=== PATIENT | male | born 1950 | race Caucasian/White ===

== ENCOUNTER → 2018-01-26 08:22 | Outpatient (CLI) | payer MEDICARE, OTHER, SELFPAY ==
[2018-01-26 11:18] LABS: PSA,Total- Diagnostic 2.41 ng/mL (0.0-4.0)
== END ==
PROVIDERS: Family Provider Family Medicine; PCP Family Medicine; Visit Provider Urology
DX: R97.20 Elevated prostate specific antigen [PSA] (principal)
CPT/HCPCS: 36415; 84153

== ENCOUNTER → 2018-09-17 12:50 | Outpatient (CLI) | payer MEDICARE, OTHER, SELFPAY ==
[2018-09-17 14:36] LABS: PSA,Total - Annual Screen 2.91 ng/mL (0.00-4.00)
== END ==
PROVIDERS: Family Provider Family Medicine; PCP Family Medicine; Referring Provider Urology; Visit Provider Urology
DX: Z12.5 Encounter for screening for malignant neoplasm of prostate (principal)
CPT/HCPCS: 36415; 84153; G0103

== ENCOUNTER → 2020-06-12 08:53 | Outpatient (CLI) | payer MEDICARE, OTHER, SELFPAY ==
[2020-06-12 10:13] LABS: PSA,Total- Diagnostic 2.93 ng/mL (0.0-4.0)
== END ==
PROVIDERS: PCP Family Medicine; Referring Provider Urology; Visit Provider Urology
DX: C61 Malignant neoplasm of prostate (principal)
CPT/HCPCS: 36415; 84153

== ENCOUNTER → 2020-08-17 08:13 | Outpatient (CLI) | payer MEDICARE, OTHER, SELFPAY ==
[2020-08-17 10:18] LABS: Absolute Lymphocyte Count 2.85 X10^3/uL (0.83-4.51); Absolute Neutrophil Count 5.1 X10^3/uL (2.0-7.7); Basophil# 0.03 X10^3/uL; Basophil% 0.3 % (0-1); Eosinophil# 0.23 X10^3/uL; Eosinophils% 2.5 % (0-5); Hematocrit 45.4 % (40-54); Hemoglobin 14.7 g/dL (13.0-16.5); Lymphocyte # 2.85 X10^3/ul (4.0); Lymphocyte % 31.1 % (19-41); Mean Corp Hgb Conc 32.4 g/dL (32-36); Mean Corpuscular Hgb 28.8 pg (27.0-32.0); Mean Platelet Vol. 9.9 fl (6.2-12.0); Monocyte# 0.87 X10^3/uL; Monocyte% 9.5 % (0-10); NRBC Flagged by Analyzer 0 % (0-5); Neutrophil # 5.14 X10^3/uL (2.7-7.7); Neutrophil % 56.3 % (47-70); Platelet Count 274 K/mm3 (150-450); RBC Distribution Width CV 11.6 % (11.6-14.6); RBC Distribution Width SD 37.4 fl (35.1-43.9); White Blood Count 9.2 K/mm3 (4.4-11.0)
[2020-08-17 10:51] LABS: ALB/GLOB Ratio 1.2 RATIO (0.9-2.4); AST(SGOT) 18 U/L (15-37); Alanine Aminotransfer ALT/SGPT 27 U/L (16-61); Albumin, Serum 3.7 g/dL (3.2-5.0); Alkaline Phosphatase 66 U/L (45-117); Anion Gap 2 (5-15); BUN 25 mg/dL (7-18); BUN/Creat Ratio 18.9 RATIO (10-20); Chloride 106 mmol/L (98-107); Cholesterol 164 mg/dL (200); Creatinine, Serum 1.32 mg/dL (0.70-1.30); EST Glomerular Filtration Rate 57 mL/min (>60); Est Glom Filt Rate - Afr Amer 69 mL/min (>60); Globulin 3.2 g/dL (2.2-4.2); Glucose 85 mg/dL (74-106); High Density Lipoprotein 48 mg/dL; Potassium 4.7 mmol/L (3.5-5.1); Protein, Total 6.9 g/dL (6.4-8.2); Sodium Level 138 mmol/L (136-145); Triglycerides 132 mg/dL; Very Low Density Lipoprotein 26 mg/dL (5-40)
== END ==
PROVIDERS: PCP Family Medicine; Referring Provider Family Medicine; Visit Provider Family Medicine
DX: K21.9 Gastro-esophageal reflux disease without esophagitis (principal); E78.5 Hyperlipidemia, unspecified
CPT/HCPCS: 36415; 80053; 80061; 85025

== ENCOUNTER → 2021-07-24 | Outpatient (CLI) | payer MEDICARE, OTHER, SELFPAY | END | disposition home or self-care (01) | LOC: LABSPEC 13:21 | PROVIDERS: PCP Family Medicine; Referring Provider Physician Assistant Surgical; Visit Provider Physician Assistant Surgical | DX: Z11.52 Encounter for screening for COVID-19 (principal) | CPT/HCPCS: 87635; U0005; U0003 ==

== ENCOUNTER 2021-08-01 08:07 | Outpatient (CLI) | payer MEDICARE, OTHER, SELFPAY ==
[2021-08-01 10:13] LABS: Absolute Lymphocyte Count 3.06 X10^3/uL (0.83-4.51); Absolute Neutrophil Count 4.9 X10^3/uL (2.0-7.7); Basophil# 0.03 X10^3/uL; Basophil% 0.3 % (0-1); Eosinophil# 0.31 X10^3/uL; Eosinophils% 3.3 % (0-5); Hematocrit 45.1 % (40-54); Hemoglobin 15.1 g/dL (13.0-16.5); Lymphocyte # 3.06 X10^3/ul (0.83-4.51); Mean Corp Hgb Conc 33.5 g/dL (32-36); Mean Corpuscular Hgb 29.5 pg (27.0-32.0); Mean Corpuscular Volume 88.1 fL (80-94); Mean Platelet Vol. 9.8 fl (6.2-12.0); Monocyte% 9.7 % (0-10); NRBC Flagged by Analyzer 0 % (0-5); Neutrophil # 4.92 X10^3/uL (2.7-7.7); Neutrophil % 53.3 % (47-70); Platelet Count 318 K/mm3 (150-450); RBC Distribution Width CV 11.7 % (11.6-14.6); RBC Distribution Width SD 37.8 fl (35.1-43.9); Red Blood Count 5.12 M/mm3 (4.6-6.2); White Blood Count 9.3 K/mm3 (4.4-11.0)
[2021-08-01 10:26] LABS: Albumin, Serum 3.8 g/dL (3.2-5.0); BUN 20 mg/dL (7-18); BUN/Creat Ratio 16.4 RATIO (10-20); Creatinine, Serum 1.22 mg/dL (0.70-1.30); EST Glomerular Filtration Rate 62 mL/min (>60); Est Glom Filt Rate - Afr Amer 76 mL/min (>60); Globulin 3.5 g/dL (2.2-4.2); Glucose 91 mg/dL (74-106); Protein, Total 7.3 g/dL (6.4-8.2)
[2021-08-01 10:27] LABS: ALB/GLOB Ratio 1.1 RATIO (0.9-2.4); AST(SGOT) 21 U/L (15-37); Alanine Aminotransfer ALT/SGPT 36 U/L (16-61); Alkaline Phosphatase 69 U/L (45-117); Anion Gap 5 (5-15); Calcium,Total 9.3 mg/dL (8.5-10.1); Chloride 103 mmol/L (98-107); Cholesterol 171 mg/dL (200); High Density Lipoprotein 52 mg/dL; Potassium 4.5 mmol/L (3.5-5.1); Sodium Level 138 mmol/L (136-145); Triglycerides 94 mg/dL; Very Low Density Lipoprotein 19 mg/dL (5-40)
== END 2021-08-01 23:59 | disposition short-term general hospital (02) ==
LOC: MTLAB 08:10
PROVIDERS: PCP Family Medicine; Referring Provider Family Medicine; Visit Provider Family Medicine
DX: E78.5 Hyperlipidemia, unspecified (principal); K21.9 Gastro-esophageal reflux disease without esophagitis
CPT/HCPCS: 36415; 80053; 80061; 85025

== ENCOUNTER 2021-09-13 15:29 | Outpatient (CLI) | payer MEDICARE, OTHER, SELFPAY ==
[2021-09-13 17:23] LABS: PSA,Total- Diagnostic 3.66 ng/mL (0.0-4.0)
== END 2021-09-13 23:59 | disposition home or self-care (01) ==
LOC: LAB 15:32
PROVIDERS: PCP Family Medicine; Visit Provider Urology
DX: R97.20 Elevated prostate specific antigen [PSA] (principal)
CPT/HCPCS: 36415; 84153

== ENCOUNTER → 2022-08-05 | Outpatient (CLI) | payer MEDICARE, OTHER, SELFPAY ==
[2022-08-05 12:07] LABS: Absolute Neutrophil Count 5.9 X10^3/uL (2.0-7.7); Basophil# 0.04 X10^3/uL; Basophil% 0.4 % (0-1); Hematocrit 44.3 % (40-54); Hemoglobin 14.9 g/dL (13.0-16.5); Lymphocyte % 24.8 % (19-41); Mean Corp Hgb Conc 33.6 g/dL (32-36); Mean Corpuscular Hgb 29.9 pg (27.0-32.0); Mean Platelet Vol. 10.9 fl (6.2-12.0); Monocyte# 1.39 X10^3/uL; Monocyte% 13.8 % (0-10); NRBC Flagged by Analyzer 0 % (0-5); Neutrophil % 58.6 % (47-70); Platelet Count 276 K/mm3 (150-450); RBC Distribution Width CV 11.7 % (11.6-14.6); RBC Distribution Width SD 37.2 fl (35.1-43.9); Red Blood Count 4.98 M/mm3 (4.6-6.2); White Blood Count 10.1 K/mm3 (4.4-11.0)
[2022-08-05 12:43] LABS: ALB/GLOB Ratio 1.1 RATIO (0.9-2.4); AST(SGOT) 19 U/L (15-37); Alanine Aminotransfer ALT/SGPT 34 U/L (16-61); Albumin, Serum 3.6 g/dL (3.2-5.0); Alkaline Phosphatase 67 U/L (45-117); Anion Gap 9 (5-15); BUN 18 mg/dL (7-18); BUN/Creat Ratio 14.1 RATIO (10-20); Calcium,Total 9.5 mg/dL (8.5-10.1); Chloride 103 mmol/L (98-107); Cholesterol 169 mg/dL (200); Creatinine, Serum 1.28 mg/dL (0.70-1.30); EST Glomerular Filtration Rate 59 mL/min (>60); Est Glom Filt Rate - Afr Amer 71 mL/min (>60); Globulin 3.3 g/dL (2.2-4.2); Glucose 93 mg/dL (74-106); High Density Lipoprotein 45 mg/dL; Potassium 4.5 mmol/L (3.5-5.1); Protein, Total 6.9 g/dL (6.4-8.2); Sodium Level 140 mmol/L (136-145); Triglycerides 249 mg/dL; Very Low Density Lipoprotein 50 mg/dL (5-40)
== END | disposition home or self-care (01) ==
LOC: BFHLAB 08:37
PROVIDERS: PCP Family Medicine; Visit Provider Family Medicine
DX: E78.5 Hyperlipidemia, unspecified (principal); K21.9 Gastro-esophageal reflux disease without esophagitis
CPT/HCPCS: 36415; 80053; 80061; 85025

== ENCOUNTER → 2022-10-09 | Outpatient (CLI) | payer MEDICARE, OTHER, SELFPAY ==
[2022-10-09 12:51] LABS: PSA,Total - Annual Screen 3.55 ng/mL (0.00-4.00)
[2022-10-10 16:13] LABS: PSA,Total- Diagnostic 3.55 ng/mL (0.0-4.0)
== END | disposition home or self-care (01) ==
LOC: MTLAB 09:37
PROVIDERS: PCP Family Medicine; Referring Provider Urology; Visit Provider Urology
DX: R97.20 Elevated prostate specific antigen [PSA] (principal)
CPT/HCPCS: 36415; 84153; G0103

== ENCOUNTER 2023-06-10 11:06 | Observation (INO) | payer MEDICARE, OTHER, SELFPAY ==
[2023-06-10] VITALS (7 sets, daily range): BP systolic 120–166; BP diastolic 74–96; PULSE 62–74; RESP 12–18; TEMP 36.1–36.7; O2SAT 97–100; BMI 24.0; BMI 23.4
--- NOTE | 2023-06-10 11:26 | CT_ITS ---
STUDY: CTA HEAD AND NECK WITH CONTRAST REASON FOR EXAM: Male, 73 years old. Transient left vision loss RADIATION DOSAGE (If Supplied By Facility): CTDIvol = ( 31.60 ) mGy, DLP = ( 1462.58 ) mGycm TECHNIQUE: CT angiography was performed with a multi-detector CT scanner. Data acquisition was obtained from the skull base through the vertex following intravenous administration of 100 ML ISOVUE 370. MIP images were reconstructed from the axial data set. Post-processing of the angiographic images was performed, with multiplanar reformation and 3D reconstruction. Individualized dose optimization techniques were used for this CT. COMPARISON: No relevant priors. FINDINGS: Normal bilateral petrous carotid arteries. Normal right cavernous carotid artery with a normal supraclinoid bifurcation. Normal left cavernous carotid artery with a normal supraclinoid bifurcation. Normal right A1 segments of the anterior cerebral artery. Normal left A1 segments of the anterior cerebral artery. Normal intact anterior communicating artery (ACOM). Normal bilateral A2 segments of the anterior cerebral arteries. Normal right M1 and M2 segments of the middle cerebral arteries, with a normal M1 bifurcation. Normal left M1 and M2 segments of the middle cerebral arteries, with a normal M1 bifurcation. Normal right posterior communicating artery (PCOM). Normal left posterior communicating artery (PCOM). Normal bilateral vertebral arteries. Normal basilar artery with a normal basilar bifurcation. The visualized bilateral superior cerebellar (SCA) arteries are normal. Normal bilateral P1, P2 and visualized P3 segments of the posterior cerebral arteries. There is no demonstrated aneurysm of the sycuan of [place]. There is no demonstrated abnormality of the visualized brain. Mild heterogeneous enlargement of the thyroid gland. AORTIC ARCH: There is mild atherosclerotic calcific plaque formation of the aortic arch and great vessels arising from the aortic arch, without a hemodynamically significant stenosis. There is a normal origin of the brachiocephalic, left common carotid, and left subclavian arteries. RIGHT CAROTID ARTERIES: Normal right common carotid artery (CCA). Normal right common carotid bulb. There is minimal atherosclerotic plaque formation of the origin of the right internal carotid artery with less than 50% cross sectional diameter stenosis. Normal visualized cervical portion of the right internal carotid artery. Normal origin of the right external carotid artery (ECA). LEFT CAROTID ARTERIES: Normal left common carotid artery (CCA). Normal left common carotid bulb. Normal origin of the left internal carotid (ICA) artery without a hemodynamically significant stenosis. Normal visualized cervical portion of the left internal carotid artery. Normal origin of the left external carotid artery (ECA). VERTEBRAL ARTERIES: Normal bilateral vertebral arteries. CT/CTA Head AND Neck W/ Contrast IMPRESSION: Minimal calcific plaque at the origin of the right internal carotid artery. Electronically Signed: Isak Floyd MD at 12:54 EST ,
--- NOTE | 2023-06-10 11:26 | EDS_ITS ---
<Statement entered by Morenita Mcclure MD - 06/10/23 15:34> I have personally performed a face to face assessment of the patient and have reviewed the FOREST Note. Patient seen and evaluated with senior advocate. Patient presents from ophthalmology office secondary to transient vision change. He reported had a 5 to 10-minute episode of loss of vision from his left eye. He states after his vision resolved his left eye felt achy. He was seen at the ophthalmology center and had a full eye exam that revealed no acute abnormalities. No evidence of GCA. Patient sent to the ER for stroke work-up. Patient sitting upright in bed no acute distress. Head and neck examination unremarkable. Heart is regular rate and rhythm. Lung sounds are clear. Abdomen is soft and nontender. Neuro exam reveals no deficits at this time. Lab work, EKG largely unremarkable. CTA of the head and neck unremarkable. Patient's had no further symptoms in the emergency room. He is discussed with h ospitalist regarding admission for remainder of stroke work-up. HPI History of Present Illness Chief Complaint: Eye Problem Narrative Narrative: 73-year-old male presents with transient left vision loss. This morning he was on the Zoom meeting when his left eye started to look fuzzy and suddenly a black curtain came down with complete vision loss. He states he had a dull ache in the eyeball but no real pain or headache. It resolved within 10 minutes and he is back to normal. He called the [facility] and had a dilated eye exam with reported no abnormalities. He was sent in for a TIA work-up. He states he does have a remote history of uveitis in the left eye which was successfully treated. He has had no recent vision changes other than today. He wears glasses. No headaches or jaw pain. No fever or chills. [facility] Medical History (Updated 06/10/23 @ 15:03 by MIKAYLA Barlow) Encounter for screening for COVID-19 GERD (gastroesophageal reflux disease) URI (upper respiratory infection) Home Medications cholecalciferol (vitamin D3) 50 mcg (2,000 unit) tablet (Vitamin D3) 50 mcg PO DAILY 06/10/23 [History Last Taken 06/10/23] diphenhydramine HCl 25 mg capsule (Benadryl) 25 mg PO QHS SLEEP 06/10/23 [History Last Taken 06/09/23] lansoprazole 15 mg capsule,delayed release 30 mg PO DAILY 06/10/23 [History Last Taken 06/10/23] multivitamin 1 tab PO DAILY 06/10/23 [History Last Taken 06/10/23] niacin 100 mg tablet 100 mg PO DAILY 06/10/23 [History Last Taken 06/10/23] Allergy/AdvReac Type Severity Reaction Status Date / Time No Known Allergies Allergy Unverified 09/13/21 14:09 Social History Smoking Status: Never smoker ROS ROS ED ROS Narrative Constitutional: Negative for fever, chills, malaise. Eyes: Positive for visual change. ENT: Negative for sore throat, ear pain, rhinorrhea. CVS: Negative for chest pain. Respiratory: Negative for shortness of breath. GI: Negative for nausea, vomiting. Neuro: Negative for headache, motor/sensory dysfunction. EXAM Physical Exam Narrative Exam Narrative: CONST: Patient sitting in no acute distress. EYES: Left eye dilated from ophthalmology office. PERRLA, EOMI, red reflex intact. ENT: No temporal artery tenderness. NECK: Normal inspection. RESP: No respiratory distress, CTAB. CVS: Regular rate and rhythm, no murmur, no gallop. SKIN: Color normal, no rash, warm, dry, intact. EXTREMITIES: Normal appearance, no pedal edema. NEURO: Oriented x4. PSYCH: Normal affect. Const Vital Signs: 06/10/23 11:08 06/10/23 11:18 Temperature 97.9 F Temperature Source Temporal Pulse Rate 70 70 Respiratory Rate 12 18 Blood Pressure 166/96 H 156/92 H Blood Pressure Mean 119 113 Pulse Ox 100 100 Oxygen Delivery Method Room Air Room Air MDM MDM MDM Narrative Medical decision making narrative: History gathered from: Patient, , ophthalmology office Patient had transient left monocular vision loss. He was evaluated by ophthalmology with no abnormality found and sent in for amaurosis fugax/TIA work-up. He is awake alert. Stable vital signs. Normal neurological exam. He has had no headaches or jaw pain and has no temporal artery tenderness so I do not suspect giant cell arteritis. CBC and BMP are unremarkable. CTA head/neck shows minimal calcific plaque at the origin of the ROCÍO. Patient will need admitted for MRI and stroke work-up. I discussed the case with hospitalist. Differential: TIA, intraocular process, GCA Lab Data Attestation: I reviewed the patient's lab results. EKG Initial EKG: Attestation: I personally reviewed and interpreted this EKG as follows: Interpretation: Sinus Rhythm and Sinus Arrythmia Comments: NSR with sinus arrhythmia at 62 bpm Incomplete RBBB, no STEMI criteria Discharge Plan Triage Chief Complaint: Eye Problem ED Midlevel Provider: Melisa Figueroa ED Provider: Morenita Mcclure Dx/Rx/DC Orders Clinical Impression: Monocular vision loss, Transient ischemic attack Primary Care Provider: Blanche Ko
--- NOTE | 2023-06-10 11:26 | EKG12_ITS ---
Test Reason : GENERAL Blood Pressure : / mmHG Vent. Rate : 062 BPM Atrial Rate : 062 BPM P-R Int : 168 ms QRS Dur : 100 ms QT Int : 392 ms P-R-T Axes : 020 -20 004 degrees QTc Int : 397 ms Normal sinus rhythm with sinus arrhythmia Incomplete right bundle branch block Minimal voltage criteria for LVH, may be normal variant ( R in aVL ) Borderline ECG Confirmed by DON FRAGA, LITTLE ([id number]), magazine editor ELMER BHAKTA ([id number]) on 06/18/2023 10:34:11 AM Referred By: Confirmed By:LITTLE OCHOA MD
[2023-06-10 11:52] LABS: Absolute Lymphocyte Count 2.14 X10^3/uL (0.83-4.51); Absolute Neutrophil Count 5.1 X10^3/uL (2.0-7.7); Basophil# 0.03 X10^3/uL; Basophil% 0.4 % (0-1); Eosinophil# 0.07 X10^3/uL; Eosinophils% 0.8 % (0-5); Hematocrit 44.6 % (40-54); Hemoglobin 15.1 g/dL (13.0-16.5); Lymphocyte # 2.14 X10^3/ul (0.83-4.51); Lymphocyte % 25.9 % (19-41); Mean Corp Hgb Conc 33.9 g/dL (32-36); Mean Corpuscular Hgb 29.5 pg (27.0-32.0); Mean Corpuscular Volume 87.1 fL (80-94); Monocyte# 0.86 X10^3/uL; Monocyte% 10.4 % (0-10); NRBC Flagged by Analyzer 0 % (0-5); Neutrophil # 5.13 X10^3/uL (2.7-7.7); Neutrophil % 62.1 % (47-70); Platelet Count 250 K/mm3 (150-450); RBC Distribution Width CV 11.8 % (11.6-14.6); RBC Distribution Width SD 37.7 fl (35.1-43.9); Red Blood Count 5.12 M/mm3 (4.6-6.2); White Blood Count 8.3 K/mm3 (4.4-11.0)
[2023-06-10 12:04] LABS: Anion Gap 2 (5-15); BUN 21 mg/dL (7-18); BUN/Creat Ratio 16.9 RATIO (10-20); Calcium,Total 9.3 mg/dL (8.5-10.1); Chloride 105 mmol/L (98-107); Creatinine, Serum 1.24 mg/dL (0.70-1.30); EST Glomerular Filtration Rate 61 mL/min (>60); Est Glom Filt Rate - Afr Amer 74 mL/min (>60); Glucose 114 mg/dL (74-106); Potassium 4.5 mmol/L (3.5-5.1); Sodium Level 140 mmol/L (136-145)
--- NOTE | 2023-06-10 14:40 | HP.PCM.HOS_ITS ---
HPI - General General Date of Admission: 06/10/23 Date of Service: 06/10/23 Chief Complaint: Transient vision loss. 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 [employer] w/ PMHx: GERD, Hx Uveitis (similar type episode in 2013 following back surgery with immediate Eye evaluation with diagnosis at that time of Uveitis) otherwise healthy who presents to the [facility] [facility] [facility] ED on 06/10/23 with history of onset at ~9:15 am while on a Zoom call monocular left eye vision loss not specifically a curtain coming down as he only noticed it because he was on the Zoom call and thought something was wrong with the screen and when he checked each eye he noticed that he could not see it of his left eye lasting approximately 10 minutes and very specifically his vision came back from top to bottom like a curtain prompting immediate call to ophthalmology who he saw within 30 to 45 minutes at [facility] with normal vision examination with referral to the ED for TIA evaluation. Work-up in the ED included T97.9, heart 70, BP 166/96, respiratory rate 12, 100% room air, CBC with WC 8.3, and 115.1, platelet 250 without marked shift, BMP with Comvax at 33, BUN/creatinine 21/1.4, glucose 114 otherwise not marked appearing, CTA head neck with minimal calcific plaque at the origin the right internal carotid artery otherwise not marked appearing, EKG with sinus rhythm with no acute evidence of ischemia. [facility] Medical History (Updated 06/10/23 @ 15:[address] Amy Ham MD) GERD (gastroesophageal reflux disease) History of uveitis Home Medications cholecalciferol (vitamin D3) 50 mcg (2,000 unit) tablet (Vitamin D3) 50 mcg PO DAILY 06/10/23 [History Last Taken 06/10/23] diphenhydramine HCl 25 mg capsule (Benadryl) 25 mg PO QHS SLEEP 06/10/23 [History Last Taken 06/09/23] lansoprazole 15 mg capsule,delayed release 30 mg PO DAILY 06/10/23 [History Last Taken 06/10/23] multivitamin 1 tab PO DAILY 06/10/23 [History Last Taken 06/10/23] niacin 100 mg tablet 100 mg PO DAILY 06/10/23 [History Last Taken 06/10/23] Allergy/AdvReac Type Severity Reaction Status Date / Time No Known Allergies Allergy Unverified 09/13/21 14:09 Family History (Updated 06/10/23 @ 15:[address] Amy Ham MD) Mother Rheumatic fever Valvular heart disease Heart disease Hypertension Father Heart disease Hypertension Colon cancer Dx in his 80s. Prostate cancer Surgical History (Updated 06/10/23 @ 15:[address] Amy Ham MD) History of back surgery History of hand surgery History of tonsillectomy and adenoidectomy Social History (Updated 06/10/23 @ 15:[address] Amy Ham MD) household members: spouse Smoking Status: Never smoker alcohol intake: current alcohol intake frequency: holidays/special occasions only substance use type: does not use ROS ROS Narrative Admission Review of Systems: CONSTITUTIONAL: No weight loss, fever, chills, weakness or fatigue. HEENT: + Transient L eye vision loss. Eyes: No double vision or yellow sclerae. Ears, Nose, Throat: No hearing loss, sneezing, congestion, runny nose or sore throat. SKIN: No rash or itching, lesions, wounds. CARDIOVASCULAR: No chest pain, chest pressure or chest discomfort, palpitations, edema, orthopnea, syncopal events. RESPIRATORY: No shortness of breath, cough or sputum, wheezing, hemoptysis. GASTROINTESTINAL: No anorexia, nausea, vomiting or diarrhea, abdominal pain, melena, BRBPR. GENITOURINARY: No dysuria, frequency, urgency or retention. NEUROLOGICAL: + Transient vision loss. No headache, dizziness, syncope, paralysis, ataxia, numbness or tingling in the extremities, focal weakness, change in bowel or bladder control, seizure. MUSCULOSKELETAL: + muscle, back pain, joint pain or stiffness. HEMATOLOGIC: No anemia, bleeding or bruising. LYMPHATICS: No enlarged nodes. No history of splenectomy. PSYCHIATRIC: No history of depression or anxiety. ENDOCRINOLOGIC: No reports of sweating, cold or heat intolerance. No polyuria or polydipsia. ALLERGIES: No history of asthma, hives, eczema or rhinitis. Vital Signs Vital Signs Vital Signs: 06/10/23 11:08 06/10/23 11:18 Temperature 97.9 F Temperature Source Temporal Pulse Rate 70 70 Respiratory Rate 12 18 Blood Pressure 166/96 H 156/92 H Blood Pressure Mean 119 113 Pulse Ox 100 100 Oxygen Delivery Method Room Air Room Air Weight Weight: 158 lb Body Mass Index (BMI) 24.0 Physical Exam Narrative Physical Examination: General: Awake, alert, oriented x 3 and cooperative, seated upright in the ED bed in no apparent distress, no recurrent vision loss. Skin: Normal color, normal turgor, no icterus, no cyanosis. HEENT: AT/NC, EOMI, vision completely intact, peripheral bentley intact, PERRLA, MMM, no carotid bruits or JVD noted. Lungs: CTA bilaterally, moderate effort, mild decrease BL bases, no rales, ronchi or wheezing. Heart: Regular rate and rhythm; no gallop, rub audible. Abdomen: Soft, NTTP, ND, normal BS, no HSM. Extremities: No cyanosis, clubbing, or edema. Neurological: Patient awake, alert, oriented x 3, cognitive function intact; pupils equally reactive to light and accommodation, cranial nerves II-XII grossly normal, moving all 4 extremities, no focal deficits, strength preserved, finger-nose and [id number] appropriate, unremarkable Babinski, bentley of vision appropriate, vision completely intact, sensation appropriate. Psychiatric: Affect appears normal, no acute evidence of depressive or anxiety feelings. Results Lab / Micro Data 06/10/23 11:45 06/10/23 11:45 Labs: Laboratory Results - last 24 hr 06/10/23 11:45: WBC 8.3, RBC 5.12, Hgb 15.1, Hct 44.6, MCV 87.1, MCH 29.5, MCHC 33.9, RDW Std Deviation 37.7, RDW Coeff of Martina 11.8, Plt Count 250, MPV 10.0, I mmature Gran % (Auto) 0.400, Neut % (Auto) 62.1, Lymph % (Auto) 25.9, Meade % (Auto) 10.4 H, Eos % (Auto) 0.8, Baso % (Auto) 0.4, Absolute Neuts (auto) 5.1, Absolute Lymphs (auto) 2.14, Nucleated RBC % 0, Sodium 140, Potassium 4.5, Chloride 105, Carbon Dioxide 33.0 H, Anion Gap 2 L, BUN 21 H, Creatinine 1.24, Estim Creat Clear Calc 52.10, Est GFR (MDRD) Af Amer 74, Est GFR (MDRD) Non-Af 61, BUN/Creatinine Ratio 16.9, Glucose 114 H, Calcium 9.3 Radiology Impression Head/Neck CTA 06/10/23 11:26 IMPRESSION: Minimal calcific plaque at the origin of the right internal carotid artery. 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 #1. Monocular vision loss, transient concerning for TIA: Will admit to PCU, will obtain MRI Brain, ECHO, PT/OT/Speech/Nutrition evaluation per protocol. Given history of previous episode of vision loss that was transient with diagnosis at that time of uveitis will obtain CRP and ESR to be cautious however of note patient did just have regular eye examination. Will allow permissive HTN, maintain on asa, add statin pending ongoing evaluation as noted w/ AM FLP, fall precautions. Mag, TSH, FLP, HgbA1c requested. Maintain on fall and aspiration precautions. #2. Elevated BP without hypertensive diagnosis: Onset in this acute presentation, notes BP at ophthalmology office normal, will continue to monitor with permissive hypertension as noted with parent agents per stroke protocol. #3. History of previous uveitis: Patient with episode of monocular vision loss in 2012 following a back surgery with diagnosis at that time following ophthalmology evaluation with uveitis, vision was restored and patient had treatment at that time and this is resolved. Patient did have normal recent eye exam given this onset but to be cautious CRP and ESR have been requested. #4. GERD: We will continue patient home PPI. #5. DVT prophylaxis: Lovenox. Charges/Coding Visit Charges Inpatient E&M: 56770 Init Hosp L2
--- NOTE | 2023-06-10 16:07 | ECHOD_ITS ---
Reason For Study: TIA/CVA Procedure This was a 2D Doppler, Color Flow transthoracic echocardiogram. Exam performed portable in patient room. Left Ventricle Normal left ventricle. The estimated ejection fraction is 55-60 %. Right Ventricle Normal right ventricle. Normal systolic function. Atria Normal left atrium. Normal right atrium. Bubble contrast study is negative for PFO/ASD. Mitral Valve The mitral valve is structurally normal. No prolapse or stenosis seen. Tricuspid Valve Normal tricuspid valve. Aortic Valve Normal aortic valve. Pulmonic Valve The pulmonic valve is not well visualized. Great Vessels Normal aortic root. Pericardium/Pleural No pericardial effusion. Medication Performed a rapid injection of agitated mix of 9 cc saline and 1cc air to assess for atrial septal defect. MMode/2D Measurements & Calculations LVIDd: 4.4 cm IVSd: 1.1 cm LVOT diam: 2.2 cm LVIDs: 3.8 cm LVPWd: 1.2 cm RVDd: 3.3 cm FS: 14.5 % LVOT area: 3.9 cm2 Ao root diam: 3.6 cm LAV(MOD-bp): 54.0 ml LVAd ap4: 26.5 cm2 LAV(MOD-bp) Indexed: 29.5 ml/m2 LVLd ap4: 7.6 cm LAV(MOD-sp2): 62.2 ml EDV(MOD-sp4): 74.8 ml LAV(MOD-sp4): 43.7 ml EDV(sp4-el): 78.9 ml LVAs ap4: 16.6 cm2 LVLs ap4: 6.7 cm ESV(MOD-sp4): 34.2 ml ESV(sp4-el): 35.3 ml EF(MOD-sp4): 54.2 % EF(sp4-el): 55.2 % SV(MOD-sp4): 40.5 ml SV(sp4-el): 43.6 ml LA A4 area: 17.4 cm2 LA dimension(2D): 2.5 cm RA A4 area: 16.9 cm2 TAPSE: 2.7 cm Time Measurements MV dec time: 0.21 sec Doppler Measurements & Calculations MV E max yobani: 88.4 cm/sec Lat Peak E' Yobani: 11.4 cm/sec Med Peak E' Yobani: 10.2 cm/sec MV A max yobani: 94.7 cm/sec E/E' lat: 7.7 E/E' med: 8.7 MV E/A: 0.93 MV V2 max: 107.2 cm/sec MV dec slope: 435.5 cm/sec2 Ao V2 max: 111.1 cm/sec MV max P.6 mmHg Ao max P.9 mmHg MV V2 mean: 73.9 cm/sec Ao V2 mean: 77.6 cm/sec MV mean P.3 mmHg Ao mean P.8 mmHg MV V2 VTI: 40.5 cm Ao V2 VTI: 24.4 cm MVA(VTI): 2.2 cm2 AV (velocity ratio): 0.93 SAGE(I,D): 3.7 cm2 SAGE(V,D): 3.8 cm2 LV V1 max: 108.4 cm/sec SV(LVOT): 89.7 ml PA V2 max: 93.2 cm/sec LV V1 max P.7 mmHg PA V2 mean: 65.3 cm/sec LV V1 mean P.6 mmHg LV V1 mean: 75.9 cm/sec LV V1 VTI: 22.7 cm ECHO/Echo Complete Interpretation Summary The estimated ejection fraction is 55-60 %. Normal LV systolic function Bubble study performed which is negative with no evidence of intracardiac shunt No prior echocardiogram to compare Ordering Physician: Amy Ham Referring Physician: JOVNAY PATTERSON Performed By: Macie Tinoco RCS
--- NOTE | 2023-06-10 16:07 | MRI_ITS ---
STUDY: MRI BRAIN WITHOUT CONTRAST REASON FOR EXAM: Male, 73 years old. CVATEMP. LOST VISION IN LEFT EYE FOR 10 MIN TECHNIQUE: Standardized multiplanar fat and water weighted pulse sequences were obtained. COMPARISON: None. FINDINGS: Normal size of the ventricles and extra-axial spaces for the patient''s age. Minimal periventricular white matter ischemic change Solitary tiny white matter lesion in the right parietal lobe demonstrating T2 shine through. No significant white matter disease or evidence for acute infarct. Normal bilateral basal ganglia. Normal thalami. There is no extra-axial fluid accumulation. Normal flow voids within the major intracranial circulation suggesting patency by spin echo criteria. Normal sella turcica, pituitary gland, infundibular stalk, optic chiasm and hypothalamus. Normal tectal plate and pineal gland. Normal midbrain, edison and medulla. Normal cerebellum. Normal basal cisterns. Normal bilateral temporal bones. Normal bilateral internal auditory canals. No demonstrated orbital abnormality, within the constraints of a routine brain study. Normal visualized paranasal sinuses. Normal calvarium and skull base. Normal visualized soft tissue structures. Normal visualized upper cervical spine. MRI/Brain without Contrast IMPRESSION: Minimal periventricular white matter ischemic changes without evidence for acute infarct. Electronically Signed: Apolinar Chan MD at 19:42 EST ,
[2023-06-10 16:18] LABS: CRP < 2.90 mg/L (0.0-3.0); Magnesium 2.2 mg/dL (1.6-2.6)
[2023-06-10 16:26] LABS: Erythrocyte Sedimentation Rate 6 mm/hr (0-20)
[2023-06-10] MEDS: 0.9% Normal Saline (1000mL) 1,000 ML 100 ML IV (16:47)
[2023-06-10] MEDS: 0.9% Saline Lock 10 ML Syringe IV (18:56)
[2023-06-10] MEDS: DiphenhydrAMINE 25 MG Capsule PO (20:54)
[2023-06-10] MEDS: Mag Hydrox/Al Hydrox/Simeth 30 ML UDC PO (20:59)
[2023-06-11 00:09] VITALS: BP 114/68; PULSE 68; RESP 14; TEMP 36.8; O2SAT 96
[2023-06-11] MEDS: Calcium Carbonate 500 MG Tablet PO (02:23)
[2023-06-11 04:09] VITALS: BP 106/66; PULSE 71; RESP 16; TEMP 36.2; O2SAT 97
[2023-06-11 04:27] VITALS: BMI 23.4
[2023-06-11 06:00] VITALS: BMI 22.8
[2023-06-11 07:42] VITALS: O2SAT 95
[2023-06-11 08:09] VITALS: BP 134/99; PULSE 72; RESP 16; TEMP 36.8; O2SAT 97
[2023-06-11 08:14] LABS: Absolute Lymphocyte Count 2.64 X10^3/uL (0.83-4.51); Absolute Neutrophil Count 6.2 X10^3/uL (2.0-7.7); Basophil# 0.03 X10^3/uL; Basophil% 0.3 % (0-1); Eosinophil# 0.22 X10^3/uL; Eosinophils% 2.2 % (0-5); Hematocrit 45.3 % (40-54); Lymphocyte # 2.64 X10^3/ul (0.83-4.51); Lymphocyte % 26.1 % (19-41); Mean Corp Hgb Conc 33.1 g/dL (32-36); Mean Corpuscular Hgb 29.2 pg (27.0-32.0); Mean Corpuscular Volume 88.3 fL (80-94); Mean Platelet Vol. 10.2 fl (6.2-12.0); Monocyte# 0.98 X10^3/uL; Monocyte% 9.7 % (0-10); NRBC Flagged by Analyzer 0 % (0-5); Neutrophil # 6.19 X10^3/uL (2.7-7.7); Neutrophil % 61.2 % (47-70); Platelet Count 271 K/mm3 (150-450); RBC Distribution Width CV 11.9 % (11.6-14.6); RBC Distribution Width SD 38.8 fl (35.1-43.9); Red Blood Count 5.13 M/mm3 (4.6-6.2); White Blood Count 10.1 K/mm3 (4.4-11.0)
[2023-06-11] MEDS: Enoxaparin 40 MG/0.4 ML Syringe SC (08:19)
[2023-06-11] MEDS: Lansoprazole 15 MG Capsule.DR 30 MG PO (08:20)
[2023-06-11] MEDS: Aspirin 81 MG TAB.CHEW PO (08:20)
--- NOTE | 2023-06-11 08:42 | PCM.PN.HOSP ---
Reason for Visit Reason for Visit: Diagnoses Transient cerebral ischemic attack, unspecified (06/10/23) Subjective Subjective Patient experienced blurry vision and noted that he had a black curtain go over his left eye. Symptoms lasted for about 5 minutes and resolved. Had symptoms similar about 10 years ago but the work-up was unremarkable. [place] to be related with a plaque at that time. Patient does have a history of uveitis but this is not consistent with his flareups of uveitis. Did see ophthalmology yesterday who saw no ophthalmologic reason for his eye issues so sent him to the emergency room. Objective Data Objective Data Vital Signs: Vital Signs Temp Pulse Resp BP Pulse Ox O2 Del Method 36.8 C 72 16 134/99 H 97 Room Air 06/11/23 08:09 06/11/23 08:09 06/11/23 08:09 06/11/23 08:09 06/11/23 08:09 06/11/23 08:09 Oxygen Delivery Method Room Air Weight: 68.3 kg Body Mass Index (BMI) 22.8 Intake & Output: Intake and Output for Last 24 Hours 06/09/23 06/10/23 06/11/23 23:59 23:59 23:59 Intake Total 733.33 / 733.33 986.67 / 986.67 Balance 733.33 / 733.33 986.67 / 986.67 Lab / Micro Data 06/11/23 07:30 06/11/23 07:30 Labs: Laboratory Results - last 24 hr 06/10/23 11:45: WBC 8.3, RBC 5.12, Hgb 15.1, Hct 44.6, MCV 87.1, MCH 29.5, MCHC 33.9, RDW Std Deviation 37.7, RDW Coeff of Martina 11.8, Plt Count 250, MPV 10.0, Immature Gran % (Auto) 0.400, Neut % (Auto) 62.1, Lymph % (Auto) 25.9, [place] % (Auto) 10.4 H, Eos % (Auto) 0.8, Baso % (Auto) 0.4, Absolute Neuts (auto) 5.1, Absolute Lymphs (auto) 2.14, Nucleated RBC % 0, ESR 6, Sodium 140, Potassium 4.5, Chloride 105, Carbon Dioxide 33.0 H, Anion Gap 2 L, BUN 21 H, Creatinine 1.24, Estim Creat Clear Calc 52.10, Est GFR (MDRD) Af Amer 74, Est GFR (MDRD) Non-Af 61, BUN/Creatinine Ratio 16.9, Glucose 114 H, Calcium 9.3, Magnesium 2.2, C-React Prot Ext Range < 2.90 06/11/23 07:30: WBC 10.1, RBC 5.13, Hgb 15.0, Hct 45.3, MCV 88.3, MCH 29.2, MCHC 33.1, RDW Std Deviation 38.8, RDW Coeff of Martina 11.9, Plt Count 271, MPV 10.2, Immature Gran % (Auto) 0.500, Neut % (Auto) 61.2, Lymph % (Auto) 26.1, [place] % (Auto) 9.7, Eos % (Auto) 2.2, Baso % (Auto) 0.3, Absolute Neuts (auto) 6.2, Absolute Lymphs (auto) 2.64, Nucleated RBC % 0 Radiography Diagnostic Testing: Radiology Impression Head/Neck CTA 06/10/23 11:26 IMPRESSION: Minimal calcific plaque at the origin of the right internal carotid artery. Electronically Signed: Isak Floyd MD at 12:54 EST , Brain MRI 06/10/23 16:07 IMPRESSION: Minimal periventricular white matter ischemic changes without evidence for acute infarct. Electronically Signed: Apolinar Chan MD at 19:42 EST , Physical Exam Const alert and no apparent distress HEENT head/scalp atraumatic Neuro moves all extremities Psych affect normal Assessment & Plan Assessment/Plan (1) Transient ischemic attack: PLAN: Monocular vision loss, transient concerning for TIA: PT/OT/Speech/Nutrition evaluation per protocol. Given history of previous episode of vision loss that was transient with diagnosis at that time of uveitis Continue asa, add statin ESR, CRP WNL. MRI brain showed minimal periventricular white matter ischemic changes without evidence for acute infarct. Echo pending. If unremarkable, then patient will be discharged. Discussed with patient is concerning for a TIA would recommend continuing to take aspirin as well as a statin. He expresses apprehension about statins. I did tell him that there is a lot of bad information about myalgias but did acknowledge that myalgias is a common side effect. He wishes to think about that further. Doing that that is his decision and he may discuss further with his primary care provider Recommend patient follow-up with his protozoologist as well as to follow-up with neurology. PLAN: Plan Chronic conditions: History of previous uveitis: Patient with episode of monocular vision loss in 2012 following a back surgery with diagnosis at that time following ophthalmology evaluation with uveitis, vision was restored and patient had treatment at that time and this is resolved. Patient did have normal recent eye exam given this onset but to be cautious CRP and ESR have been requested. GERD: We will continue patient home PPI. DVT prophylaxis: Lovenox.
[2023-06-11 08:52] LABS: ALB/GLOB Ratio 1.1 RATIO (0.9-2.4); AST(SGOT) 21 U/L (15-37); Alanine Aminotransfer ALT/SGPT 31 U/L (16-61); Albumin, Serum 3.5 g/dL (3.2-5.0); Alkaline Phosphatase 63 U/L (45-117); Anion Gap 3 (5-15); BUN 15 mg/dL (7-18); Chloride 107 mmol/L (98-107); Cholesterol 177 mg/dL (200); Creatinine, Serum 1.36 mg/dL (0.70-1.30); EST Glomerular Filtration Rate 55 mL/min (>60); Est Glom Filt Rate - Afr Amer 66 mL/min (>60); Estimated Creatinine Clearance 47.43 ml/min; Globulin 3.1 g/dL (2.2-4.2); Glucose 100 mg/dL (74-106); High Density Lipoprotein 54 mg/dL; Potassium 4.3 mmol/L (3.5-5.1); Protein, Total 6.6 g/dL (6.4-8.2); Sodium Level 139 mmol/L (136-145); Triglycerides 101 mg/dL; Very Low Density Lipoprotein 20 mg/dL (5-40)
[2023-06-11 08:53] LABS: Hemoglobin A1c 5.4 % (3.8-5.6)
[2023-06-11 14:00] VITALS: BP 138/80; PULSE 84; RESP 16; TEMP 36.6; O2SAT 97
--- NOTE | 2023-06-11 16:13 | DS.PCM_ITS ---
Providers Date of Admission: 06/10/23 Primary Care Physician: Dr. Blanche Ko MD Reason For Visit: TIA Diagnosis Discharge Diagnosis (1) Transient ischemic attack: Status: Acute Code(s): G45.9 - Transient cerebral ischemic attack, unspecified Plan: Monocular vision loss, transient concerning for TIA: PT/OT/Speech/Nutrition evaluation per protocol. Given history of previous episode of vision loss that was transient with diagnosis at that time of uveitis Continue asa, add statin ESR, CRP WNL. MRI brain showed minimal periventricular white matter ischemic changes without evidence for acute infarct. Echo pending. If unremarkable, then patient will be discharged. Discussed with patient is concerning for a TIA would recommend continuing to take aspirin as well as a statin. He expresses apprehension about statins. I did tell him that there is a lot of bad information about myalgias but did ac knowledge that myalgias is a common side effect. He wishes to think about that further. 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 Plan Chronic conditions: * History of previous uveitis: Patient with episode of monocular vision loss in 2012 following a back surgery with diagnosis at that time following opht halmology evaluation with uveitis, vision was restored and patient had treatment at that time and this is resolved. Patient did have normal recent eye exam given this onset but to be cautious CRP and ESR have been requested. * GERD: We will continue patient home PPI. DVT prophylaxis: Lovenox. Medications at Discharge Home Medications cholecalciferol (vitamin D3) 50 mcg (2,000 unit) tablet (Vitamin D3) 50 mcg PO DAILY 06/10/23 diphenhydramine HCl 25 mg capsule (Benadryl) 25 mg PO QHS SLEEP 06/10/23 lansoprazole 15 mg capsule,delayed release 30 mg PO DAILY 06/10/23 multivitamin 1 tab PO DAILY 06/10/23 niacin 100 mg tablet 100 mg PO DAILY 06/10/23 aspirin 81 mg chewable tablet 81 mg PO BREAKFAST #0 tabs 06/11/23 Hospital Course Operations None Procedures 2-D Echocardiogram Summary of Care Provided Minutes Spent on Discharge: 32 Weight / BMI Weight Weight: 68.3 kg Body Mass Index (BMI) 22.8 ABG / Lab / Microbiology Data 06/11/23 07:30 06/11/23 07:30 Laboratory: Laboratory Results - last 24 hr 06/10/23 11:45: ESR 6, Magnesium 2.2, C-React Prot Ext Range < 2.90 06/11/23 07:30: WBC 10.1, RBC 5.13, Hgb 15.0, Hct 45.3, MCV 88.3, MCH 29.2, MCHC 33.1, RDW Std Deviation 38.8, RDW Coeff of Martina 11.9, Plt Count 271, MPV 10.2, Immature Gran % (Auto) 0.500, Neut % (Auto) 61.2, Lymph % (Auto) 26.1, [place] % (Auto) 9.7, Eos % (Auto) 2.2, Baso % (Auto) 0.3, Absolute Neuts (auto) 6.2, Absolute Lymphs (auto) 2.64, Nucleated RBC % 0, Sodium 139, Potassium 4.3, Chloride 107, Carbon Dioxide 29.0, Anion Gap 3 L, BUN 15, Creatinine 1.36 H, Estim Creat Clear Calc 47.43, Est GFR (MDRD) Af Amer 66, Est GFR (MDRD) Non-Af 55 L, BUN/Creatinine Ratio 11.0, Glucose 100, Hemoglobin A1c 5.4, Calcium 9.0, Total Bilirubin 1.60 H, AST 21, ALT 31, Alkaline Phosphatase 63, Total Protein 6.6, Albumin 3.5, Globulin 3.1, Albumin/Globulin Ratio 1.1, Triglycerides 101, Cholesterol 177, LDL Cholesterol 103, VLDL Cholesterol 20, HDL Cholesterol 54, TSH 1.20 Radiography Diagnostic Testing: Radiology Impression Brain MRI 06/10/23 16:07 IMPRESSION: Minimal periventricular white matter ischemic changes without evidence for acute infarct. Electronically Signed: Apolinar Chan MD at 19:42 EST , D/C Instructions Discharge Diet: Low fat / Low cholesterol Meaningful Use Info Meaningful Use Diagnoses (Choose all that apply): Ischemic CVA CVA Therapy Assessed for PT,OT and/or ST?: Yes Ischemic Stroke Antithrombotic order at d/c?: Yes Dx of Atrial fib/flutter?: No Anticoagulant at discharge?: No Reason anticoagulant not ordered: Treatment not Indicated Statins at discharge?: No Reason Statin not ordered: Treatment Refused by Pt Primary Dx Acute Ischemic CVA?: Yes IV thrombolytic ordered during stay?: No Reason IV thrombolytic not ordered: Procedure not Indicated Discharge Plan Admission Admit Date/Time: 06/10/23 14:51 Primary Reason for Your Visit: TIA. Attending Provider: Willian Fisher Primary Care Provider: Blanche Ko Consulting Providers: Amy Ham Instructions Additional Instructions / Restrictions: Is concerning that your symptoms with your monocular vision loss was possibly due to a TIA. MRI was negative but given the fact that there is been no evidence of other reasons for your vision loss it would seem that that would be the most likely culprit. Recommend continue take aspirin. You informed that you would wish to hold off on taking any statin but follow-up your primary care doctor and follow-up this conversation with them. If you have any further events, notify your physician or return to the emergency room. Seems highly unlikely that this was due to a migraine as you do not have a history of migraines and had no role associated typical headache with that. Your other labs do not reflect that you have anything that is concerning for giant cell arteritis. Discharge Orders/Prescriptions Prescriptions: New aspirin 81 mg Tablet,Chewable 81 mg PO BREAKFAST Qty: 0 0RF Continued lansoprazole 15 mg capsule,delayed release(DR/EC) 30 mg PO DAILY cholecalciferol (vitamin D3) [Vitamin D3] 50 mcg (2,000 unit) tablet 50 mcg PO DAILY niacin 100 mg tablet 100 mg PO DAILY multivitamin Tablet 1 tab PO DAILY diphenhydramine HCl [Benadryl] 25 mg capsule 25 mg PO QHS Referrals / Follow Up: Blanche Ko MD [Primary Care Provider] - Within 2 Weeks [facility] [Provider Group] - Within 1 Month Disposition Disposition (needs filled in before D/C Order can be placed): Home, Self Care Charges/Coding Visit Charges Inpatient E&M: 99380 Disch Hosp >30min
--- NOTE | 2023-06-11 17:01 | CASEMGMT ---
MIRNA BAUTISTA in to complete REICH Form with patient. MIRNA BAUTISTA explained REICH Form to patient, patient voiced understanding. Patient signed REICH Form and filed in chart. Patient provided copy of signed REICH Form. Patient had no further questions or concerns at this time.
[2023-06-11 17:37] VITALS: BMI 22.8
== END 2023-06-11 17:15 | disposition home or self-care (01) ==
LOC: ED 12:11 → PCU 14:56
PROVIDERS: Physician Assistant; Admitting Provider Family Medicine; Emergency Provider Emergency Medicine; PCP Family Medicine
DX: G45.9 Transient cerebral ischemic attack, unspecified (principal); H53.8 Other visual disturbances; K21.9 Gastro-esophageal reflux disease without esophagitis; Z79.899 Other long term (current) drug therapy; R03.0 Elevated blood-pressure reading, without diagnosis of hypertension; Z86.69 Personal history of other diseases of the nervous system and sense organs
CPT/HCPCS: 70496; 70498; 70551; 80048; 80053; 80061; 83036; 83735; 84443; 85025; 85652; 86140; 93005; 93306; 94762; 96360; 96361; 96372; 97802; 99221; 99284; J7030; Q9967; A4216; G0378

== ENCOUNTER → 2023-09-08 | Outpatient (CLI) | payer MEDICARE, OTHER, SELFPAY ==
[2023-09-08 10:29] LABS: Absolute Lymphocyte Count 2.57 X10^3/uL (0.83-4.51); Absolute Neutrophil Count 6.4 X10^3/uL (2.0-7.7); Basophil# 0.03 X10^3/uL; Basophil% 0.3 % (0-1); Eosinophil# 0.17 X10^3/uL; Eosinophils% 1.7 % (0-5); Hematocrit 45.2 % (40-54); Hemoglobin 15.2 g/dL (13.0-16.5); Lymphocyte # 2.57 X10^3/ul (0.83-4.51); Lymphocyte % 25.4 % (19-41); Mean Corp Hgb Conc 33.6 g/dL (32-36); Mean Corpuscular Volume 89.3 fL (80-94); Mean Platelet Vol. 9.8 fl (6.2-12.0); Monocyte# 0.95 X10^3/uL; Monocyte% 9.4 % (0-10); NRBC Flagged by Analyzer 0 % (0-5); Neutrophil # 6.37 X10^3/uL (2.7-7.7); Neutrophil % 62.8 % (47-70); Platelet Count 201 K/mm3 (150-450); RBC Distribution Width CV 12.2 % (11.6-14.6); RBC Distribution Width SD 39.9 fl (35.1-43.9); Red Blood Count 5.06 M/mm3 (4.6-6.2); White Blood Count 10.1 K/mm3 (4.4-11.0)
[2023-09-08 11:52] LABS: ALB/GLOB Ratio 1.1 RATIO (0.9-2.4); AST(SGOT) 27 U/L (15-37); Alanine Aminotransfer ALT/SGPT 50 U/L (16-61); Albumin, Serum 3.6 g/dL (3.2-5.0); Alkaline Phosphatase 77 U/L (45-117); Anion Gap 4 (5-15); BUN 20 mg/dL (7-18); BUN/Creat Ratio 14.9 RATIO (10-20); Calcium,Total 9.5 mg/dL (8.5-10.1); Chloride 106 mmol/L (98-107); Cholesterol 105 mg/dL (200); Creatinine, Serum 1.34 mg/dL (0.70-1.30); EST Glomerular Filtration Rate 56 mL/min (>60); Est Glom Filt Rate - Afr Amer 67 mL/min (>60); Globulin 3.2 g/dL (2.2-4.2); Glucose 97 mg/dL (74-106); High Density Lipoprotein 56 mg/dL; Potassium 4.8 mmol/L (3.5-5.1); Protein, Total 6.8 g/dL (6.4-8.2); Sodium Level 139 mmol/L (136-145); Triglycerides 92 mg/dL; Very Low Density Lipoprotein 18 mg/dL (5-40)
== END | disposition home or self-care (01) ==
PROVIDERS: PCP Family Medicine; Referring Provider Family Medicine; Visit Provider Family Medicine
DX: Z00.00 Encounter for general adult medical examination without abnormal findings (principal); E78.5 Hyperlipidemia, unspecified; N40.0 Benign prostatic hyperplasia without lower urinary tract symptoms; R97.20 Elevated prostate specific antigen [PSA]
CPT/HCPCS: 36415; 80053; 80061; 85025

== ENCOUNTER → 2023-10-14 | Outpatient (CLI) | payer MEDICARE, OTHER, SELFPAY ==
[2023-10-14 16:29] LABS: PSA,Total- Diagnostic 3.94 ng/mL (0.0-4.0)
== END | disposition home or self-care (01) ==
LOC: MTLAB 11:40
PROVIDERS: PCP Family Medicine; Referring Provider Urology; Visit Provider Urology
DX: N40.1 Benign prostatic hyperplasia with lower urinary tract symptoms (principal)
CPT/HCPCS: 36415; 84153

== ENCOUNTER → 2023-11-27 | Outpatient (CLI) | payer MEDICARE, OTHER, SELFPAY ==
[2023-11-27 15:50] LABS: Erythrocyte Sedimentation Rate 2 mm/hr (0-20)
[2023-12-01 12:08] LABS: ANTINUCLEAR ANTIBODIES DIRECT Negative (Negative)
== END | disposition home or self-care (01) ==
LOC: MTLAB 11:10
PROVIDERS: PCP Family Medicine; Referring Provider Psychiatry & Neurology Neurology; Visit Provider Psychiatry & Neurology Neurology
DX: G45.3 Amaurosis fugax (principal)
CPT/HCPCS: 36415; 81240; 81241; 85300; 85301; 85302; 85303; 85305; 85306; 85652; 86038; 86147; 86160; 86162; 86225; 86235

== ENCOUNTER → 2024-01-05 | Outpatient (CLI) | payer MEDICARE, OTHER, SELFPAY ==
--- NOTE | 2024-01-05 09:58 | CDU_ITS ---
Reason For Study: Left amaurosis fugax Rt. Velocities/BP Lt. Velocities/BP Prox CCA 82.5/14.5 cm/sec. Prox CCA 67.4/15.4 cm/sec. Mid CCA 83.4/17.3 cm/sec. Mid CCA 96.6/24.8 cm/sec. Dist CCA 76.8/19.2 cm/sec. Dist CCA 74.9/23.9 cm/sec. Prox ICA 81.5/18.2 cm/sec. Prox ICA 55.3/17.9 cm/sec. Mid ICA 80.6/30.5 cm/sec. Mid ICA 79.5/26.7 cm/sec. Dist ICA 91.5/21.8 cm/sec. Dist ICA 55.3/19 cm/sec. Rt. ICA/CCA = 1.10. Lt. ICA/CCA = 0.82. Prox ECA 83.4/12.6 cm/sec. Prox ECA 68.5/11.3 cm/sec. Rt. Vert. 48.5/10.7 cm/sec. Lt. Vert. 48.5/15.4 cm/sec. Right Extracranial There is intimal thickening but no significant atherosclerotic plaque noted in the right common carotid artery. There is homogeneous, smooth atherosclerotic plaque noted in the right internal carotid artery. The right internal carotid artery is very tortuous. There is homogeneous, smooth atherosclerotic plaque noted in the right external carotid artery. Antegrade flow is noted in the right vertebral artery. Left Extracranial There is intimal thickening but no significant atherosclerotic plaque noted in the left common carotid artery. There is intimal thickening but no significant atherosclerotic plaque noted in the left internal carotid artery. The left internal carotid artery is very tortuous. There is intimal thickening but no significant atherosclerotic plaque noted in the left external carotid artery. Antegrade flow is noted in the left vertebral artery. Procedure Carotid Duplex [id number]. This is a Carotid Duplex examination using B-mode, color flow and specral Doppler. Exam performed in department. VL/Carotid Duplex Ultrasound Interpretation Summary Mild (<50%) stenosis right extracranial internal carotid. Normal left extracranial internal carotid. Patent and antegrade vertebrals bilaterally. Ordering Physician: Amadeo Moreno Referring Physician: Blanche Ko Performed By: Raquel Pineda RVT
== END | disposition home or self-care (01) ==
LOC: CVS 09:56
PROVIDERS: PCP Family Medicine; Referring Provider Psychiatry & Neurology Neurology; Visit Provider Psychiatry & Neurology Neurology
DX: G45.3 Amaurosis fugax (principal)
CPT/HCPCS: 93880

== ENCOUNTER → 2024-09-09 | Outpatient (CLI) | payer MEDICARE, OTHER, SELFPAY | END | disposition home or self-care (01) | LOC: LAB.FUTURE 07:36 | PROVIDERS: PCP Family Medicine; Referring Provider Nurse Practitioner; Visit Provider Nurse Practitioner | DX: Z12.5 Encounter for screening for malignant neoplasm of prostate (principal) ==

== ENCOUNTER → 2024-09-09 | Outpatient (CLI) | payer MEDICARE, OTHER, SELFPAY ==
[2024-09-09 10:48] LABS: Absolute Lymphocyte Count 3.54 X10^3/uL (0.83-4.51); Absolute Neutrophil Count 5.6 X10^3/uL (2.0-7.7); Basophil# 0.04 X10^3/uL; Basophil% 0.4 % (0-1); Eosinophil# 0.27 X10^3/uL; Eosinophils% 2.5 % (0-5); Hematocrit 46.5 % (40-54); Hemoglobin 15.8 g/dL (13.0-16.5); Lymphocyte # 3.54 X10^3/ul (0.83-4.51); Lymphocyte % 33.3 % (19-41); Mean Corpuscular Hgb 29.9 pg (27.0-32.0); Mean Corpuscular Volume 87.9 fL (80-94); Mean Platelet Vol. 10.2 fl (6.2-12.0); Monocyte% 11.3 % (0-10); NRBC Flagged by Analyzer 0 % (0-5); Neutrophil # 5.55 X10^3/uL (2.7-7.7); Neutrophil % 52.1 % (47-70); Platelet Count 245 K/mm3 (150-450); RBC Distribution Width CV 11.8 % (11.6-14.6); RBC Distribution Width SD 38.1 fl (35.1-43.9); Red Blood Count 5.29 M/mm3 (4.6-6.2); White Blood Count 10.6 K/mm3 (4.4-11.0)
[2024-09-09 11:34] LABS: ALB/GLOB Ratio 1.1 RATIO (0.9-2.4); AST(SGOT) 29 U/L (15-37); Alanine Aminotransfer ALT/SGPT 49 U/L (16-61); Albumin, Serum 3.8 g/dL (3.2-5.0); Alkaline Phosphatase 82 U/L (45-117); Anion Gap 6 (5-15); BUN 22 mg/dL (7-18); BUN/Creat Ratio 16.3 RATIO (10-20); Calcium,Total 9.7 mg/dL (8.5-10.1); Chloride 103 mmol/L (98-107); Cholesterol 106 mg/dL (200); Creatinine, Serum 1.35 mg/dL (0.70-1.30); EST Glomerular Filtration Rate 55 mL/min (>60); Est Glom Filt Rate - Afr Amer 67 mL/min (>60); Globulin 3.4 g/dL (2.2-4.2); Glucose 94 mg/dL (74-106); High Density Lipoprotein 56 mg/dL; Potassium 4.4 mmol/L (3.5-5.1); Protein, Total 7.2 g/dL (6.4-8.2); Sodium Level 136 mmol/L (136-145); Triglycerides 111 mg/dL; Very Low Density Lipoprotein 22 mg/dL (5-40)
[2024-09-09 15:56] LABS: PSA,Total - Annual Screen 3.95 ng/mL (0.00-4.00)
== END | disposition home or self-care (01) ==
LOC: LAB.FUTURE 07:33 → MTLAB 07:37
PROVIDERS: PCP Family Medicine; Referring Provider Family Medicine; Visit Provider Family Medicine
DX: Z00.00 Encounter for general adult medical examination without abnormal findings (principal); E78.5 Hyperlipidemia, unspecified; K21.9 Gastro-esophageal reflux disease without esophagitis; Z12.5 Encounter for screening for malignant neoplasm of prostate
CPT/HCPCS: 36415; 80053; 80061; 84153; 85025; G0103

== ENCOUNTER → 2025-06-29 | Outpatient (CLI) | payer MEDICARE, OTHER, SELFPAY ==
--- NOTE | 2025-06-29 09:35 | CDU_ITS ---
Reason For Study Reason For Study: Amaurosis Fugax Rt. Velocities/BP Lt. Velocities/BP Prox CCA 66.8/10.2 cm/sec. Prox CCA 97.7/22.8 cm/sec. Mid CCA 76.0/17.5 cm/sec. Mid CCA 90.0/24.9 cm/sec. Dist CCA 76.0/15.7 cm/sec. Dist CCA 70.4/20.0 cm/sec. Prox ICA 89.7/20.6 cm/sec. Prox ICA 81.4/17.6 cm/sec. Mid ICA 79.4/31.3 cm/sec. Mid ICA 72.8/23.9 cm/sec. Dist ICA 73.1/17.4 cm/sec. Dist ICA 74.7/24.9 cm/sec. Rt. ICA/CCA = 1.2. Lt. ICA/CCA = 0.9. Prox ECA 86.4/14.9 cm/sec. Prox ECA 55.4/11.9 cm/sec. Rt. Vert. 52.5/12.8 cm/sec. Lt. Vert. 63.4/21.6 cm/sec. Right Extracranial There is intimal thickening but no significant atherosclerotic plaque noted in the right common carotid artery. There is intimal thickening but no significant atherosclerotic plaque noted in the right internal carotid artery. There is intimal thickening but no significant atherosclerotic plaque noted in the right external carotid artery. Antegrade flow is noted in the right vertebral artery. Left Extracranial There is intimal thickening but no significant atherosclerotic plaque noted in the left common carotid artery. There is intimal thickening but no significant atherosclerotic plaque noted in the left internal carotid artery. There is homogeneous, smooth atherosclerotic plaque noted in the left external carotid artery. Antegrade flow is noted in the left vertebral artery. Procedure Carotid Duplex [id number]. This is a Carotid Duplex examination using B-mode, color flow and specral Doppler. The exam was diagnostic. Exam performed in department. VL/Carotid Duplex Ultrasound Interpretation Summary No significant atherosclerotic plaque or stenosis noted in the internal carotid arteries bilaterally. Flow within the vertebral arteries is antegrade bilaterally. Ordering Physician: Amadeo Moreno Referring Physician: Blanche Ko Performed By: Olu Kruse RVT
== END | disposition home or self-care (01) ==
LOC: CVS 09:35
PROVIDERS: PCP Family Medicine; Referring Provider Psychiatry & Neurology Neurology; Visit Provider Psychiatry & Neurology Neurology
DX: G45.3 Amaurosis fugax (principal)
CPT/HCPCS: 93880